=== PATIENT | female | born 1960 | race Caucasian/White ===

== ENCOUNTER → 2023-09-22 19:22 | Outpatient (REF) | payer OTHER, SELFPAY | LOC: MRI 3T 19:22 | PROVIDERS: ATTENDING PHYSICIAN Surgery; FAMILY PHYSICIAN Nurse Practitioner Adult Health | DX: Z15.89 Genetic susceptibility to other disease (principal) | CPT/HCPCS: 77049; A9585 ==

== ENCOUNTER → 2023-10-28 12:12 | Outpatient (REF) | payer OTHER, SELFPAY | LOC: WDC 12:12 | PROVIDERS: ATTENDING PHYSICIAN Obstetrics & Gynecology Gynecology; FAMILY PHYSICIAN Nurse Practitioner Adult Health | DX: Z12.31 Encounter for screening mammogram for malignant neoplasm of breast (principal); Z15.89 Genetic susceptibility to other disease | CPT/HCPCS: 77063; 77067 ==

== ENCOUNTER 2024-01-21 06:31 | Outpatient (RCR) | payer OTHER, SELFPAY | END 2024-01-21 23:59 | disposition home or self-care (01) | LOC: RPT 06:31 | PROVIDERS: ATTENDING PHYSICIAN Nurse Practitioner Adult Health | DX: N39.3 Stress incontinence (female) (male) (principal); Z73.6 Limitation of activities due to disability | CPT/HCPCS: 97161; 97530 ==

== ENCOUNTER → 2024-02-09 06:32 | Day surgery (SDC) | payer OTHER, SELFPAY | LOC: GI 06:32 | PROVIDERS: ATTENDING PHYSICIAN Internal Medicine | DX: Z12.11 Encounter for screening for malignant neoplasm of colon (principal); Q43.8 Other specified congenital malformations of intestine; D12.3 Benign neoplasm of transverse colon; K51.40 Inflammatory polyps of colon without complications; K62.1 Rectal polyp | CPT/HCPCS: 45385; 45380; 88305 ==

== ENCOUNTER 2024-02-27 11:26 | Outpatient (RCR) | payer OTHER, SELFPAY | END 2024-02-27 23:59 | disposition home or self-care (01) | LOC: RPT 11:26 | PROVIDERS: ATTENDING PHYSICIAN Nurse Practitioner Adult Health | DX: N39.3 Stress incontinence (female) (male) (principal); Z73.6 Limitation of activities due to disability | CPT/HCPCS: 97110 ==

== ENCOUNTER → 2024-07-09 08:07 | Outpatient (REF) | payer OTHER, SELFPAY ==
[2024-07-09 09:57] LABS: % Basophils 0.6 % (0-2); % Eosinophils 2.7 % (0-6); % Immature Granulocytes 0.1 % (0-0.5); % Lymphocytes 24.8 % (20.5-51.1); % Monocytes 6.2 % (1.7-9.3); % Neutrophils 65.6 % (42.2-75.2); Absolute Basophils 0.1 10^3/uL (0-0.2); Absolute Eosinophils 0.2 10^3/uL (0-0.7); Absolute Monocytes 0.5 10^3/uL (0.1-0.6); Absolute Neutrophils 5.2 10^3/uL (1.4-6.5); Hematocrit 40.7 % (37.0-47.0); Mean Corp Hgb Conc. 31.9 g/dL (33.0-37.0); Mean Corpuscular Hgb 28.6 pg (27.0-31.0); Mean Corpuscular Volume 89.6 fL (81.0-99.0); Mean Platelet Volume 11.2 fL (7.4-10.4); Nucleated Red Blood Cells % 0 %; Platelet Count 323 10^3/uL (130-400); Red Blood Cell Count 4.54 10^6/uL (4.20-5.40); Red Cell Dist. Width 13.2 % (11.5-14.5); White Blood Cell Count 7.9 10^3/uL (4.8-10.8)
[2024-07-09 10:11] LABS: Blood Urea Nitrogen 19 mg/dl (7-17); Calcium 9.7 mg/dl (8.4-10.2); Carbon Dioxide 28 mmol/L (22-30); Chloride 105 mmol/L (98-107); Glucose 104 mg/dl (70-99); Potassium 4.5 mmol/L (3.5-5.1); Sodium 142 mmol/L (135-145); eGFR > 60.00
== END ==
LOC: REG 08:07
PROVIDERS: ATTENDING PHYSICIAN Student in an Organized Health Care Education/Training Program; FAMILY PHYSICIAN Nurse Practitioner Adult Health
DX: Z01.818 Encounter for other preprocedural examination (principal)
CPT/HCPCS: 36415; 80048; 85025; 93005

== ENCOUNTER → 2024-11-29 19:12 | Outpatient (REF) | payer OTHER, SELFPAY | LOC: WDC 19:12 | PROVIDERS: ATTENDING PHYSICIAN Obstetrics & Gynecology Gynecology; FAMILY PHYSICIAN Nurse Practitioner Adult Health | DX: Z12.31 Encounter for screening mammogram for malignant neoplasm of breast (principal) | CPT/HCPCS: 77063; 77067 ==

== ENCOUNTER → 2025-01-03 10:25 | Outpatient (REF) | payer OTHER, SELFPAY | LOC: RAD 10:25 | PROVIDERS: ATTENDING PHYSICIAN Nurse Practitioner Adult Health | DX: M85.852 Other specified disorders of bone density and structure, left thigh (principal) | CPT/HCPCS: 77080 ==

== ENCOUNTER → 2025-03-02 09:49 | Outpatient (REF) | payer OTHER, SELFPAY | LOC: UCDH 09:49 | PROVIDERS: ATTENDING PHYSICIAN Physician Assistant; FAMILY PHYSICIAN Nurse Practitioner Adult Health | DX: S69.92XA Unspecified injury of left wrist, hand and finger(s), initial encounter (principal) | CPT/HCPCS: 73130 ==

== ENCOUNTER → 2025-03-03 10:47 | Outpatient (REF) | payer OTHER, SELFPAY ==
[2025-03-03 11:47] LABS: Hematocrit 37.0 % (37.0-47.0); Hemoglobin 12.3 g/dL (12.0-16.0); Mean Corp Hgb Conc. 33.2 g/dL (33.0-37.0); Mean Corpuscular Volume 91.4 fL (81.0-99.0); Nucleated Red Blood Cells % 0 %; Platelet Count 223 10^3/uL (130-400); Red Cell Dist. Width 13.8 % (11.5-14.5)
[2025-03-03 12:21] LABS: Blood Urea Nitrogen 17 mg/dl (7-17); Calcium 9.1 mg/dl (8.4-10.2); Carbon Dioxide 25 mmol/L (22-30); Chloride 108 mmol/L (98-107); Glucose 94 mg/dl (70-99); Potassium 4.6 mmol/L (3.5-5.1); Sodium 140 mmol/L (135-145); eGFR > 60.00
== END ==
LOC: RCS 10:47
PROVIDERS: ATTENDING PHYSICIAN Orthopaedic Surgery Hand Surgery; FAMILY PHYSICIAN Nurse Practitioner Adult Health
DX: Z01.818 Encounter for other preprocedural examination (principal)
CPT/HCPCS: 36415; 80048; 85025; 93005

== ENCOUNTER → 2025-03-07 12:18 | Outpatient (REF) | payer OTHER, SELFPAY | LOC: RAD 12:18 | PROVIDERS: ATTENDING PHYSICIAN Registered Nurse; FAMILY PHYSICIAN Nurse Practitioner Adult Health | DX: R10.9 Unspecified abdominal pain (principal) | CPT/HCPCS: 74177; Q9967 ==

== ENCOUNTER → 2025-03-10 07:46 | Outpatient (REF) | payer OTHER, SELFPAY | LOC: HWRAD 07:46 | PROVIDERS: ATTENDING PHYSICIAN Registered Nurse; FAMILY PHYSICIAN Nurse Practitioner Adult Health | DX: M25.552 Pain in left hip (principal) | CPT/HCPCS: 73502 ==

== ENCOUNTER → 2025-05-06 07:49 | Outpatient (REF) | payer OTHER, SELFPAY | LOC: MRI 3T 07:49 | PROVIDERS: ATTENDING PHYSICIAN Nurse Practitioner Adult Health; FAMILY PHYSICIAN Nurse Practitioner Adult Health | DX: R92.2 Inconclusive mammogram (principal); Z15.09 Genetic susceptibility to other malignant neoplasm | CPT/HCPCS: 77049; A9585 ==

== ENCOUNTER → 2025-06-15 14:53 | Outpatient (REF) | payer OTHER, SELFPAY | LOC: WDC 14:53 | PROVIDERS: ATTENDING PHYSICIAN Surgery; FAMILY PHYSICIAN Nurse Practitioner Adult Health | DX: R92.8 Other abnormal and inconclusive findings on diagnostic imaging of breast (principal) | CPT/HCPCS: 76642 ==